=== PATIENT | male | born 1990 | race Caucasian/White ===

== ENCOUNTER 2017-06-01 15:54 | Emergency (ER) | payer SELFPAY ==
[2017-06-01] MEDS ORDERED: Ibuprofen 800 MG TAB ONE (16:09)
[2017-06-01] MEDS ORDERED: HYDROcodone/Acetaminophen 5/325 mg Tablet ONE (16:09)
== END 2017-06-01 16:28 | disposition home or self-care (01) ==
LOC: ERS 15:54
DX: K03.81 Cracked tooth (principal)
CPT/HCPCS: 99282

== ENCOUNTER 2018-01-27 11:52 | Emergency (ER) | payer SELFPAY ==
[2018-01-27] MEDS ORDERED: Ketorolac Tromethamine 30 MG/ML VIAL ONE (12:17)
[2018-01-27] MEDS ORDERED: Acetaminophen/Codeine 30-300mg Tablet ONE (12:29)
[2018-01-27] MEDS ORDERED: Acetaminophen/Codeine 30-300mg Tablet PO SCH (12:30)
== END 2018-01-27 12:46 | disposition home or self-care (01) ==
LOC: ERS 11:52
DX: K03.81 Cracked tooth (principal); F90.9 Attention-deficit hyperactivity disorder, unspecified type
CPT/HCPCS: 99282; J1885

== ENCOUNTER 2018-03-29 18:00 | Emergency (ER) | payer OTHER, SELFPAY | END 2018-03-29 19:12 | disposition home or self-care (01) | LOC: ERS 18:00 | DX: S13.4XXA Sprain of ligaments of cervical spine, initial encounter (principal); M25.512 Pain in left shoulder; M25.511 Pain in right shoulder; F17.210 Nicotine dependence, cigarettes, uncomplicated; V89.2XXA Person injured in unspecified motor-vehicle accident, traffic, initial encounter | CPT/HCPCS: 99283 ==